=== PATIENT | male | born 1990 | race Caucasian/White ===

== ENCOUNTER → 2017-01-20 | Outpatient (CLI) | payer BC ==
--- NOTE | 2017-01-20 09:07 | REP ---
Chest two views HISTORY: Cough Comparison: 06/28/2015 The lungs are clear. The heart is normal in size. The pulmonary vasculature is normal in appearance. The bony structure is intact. IMPRESSION: No acute disease. Signed by Eduardo Munroe MD 01/20/2017 08:58 A
== END ==
LOC: M RAD 08:46
PROVIDERS: ATTEND Physician Assistant Medical
DX: R05 Cough (principal); R06.02 Shortness of breath

== ENCOUNTER 2017-03-22 02:47 | Inpatient (IN) | payer BC ==
[~2017-03-22] VITALS: Ht 177.8 cm; Wt 76.2 kg
[2017-03-22] MEDS ORDERED: NICOTINE 21MG/24HR 1 EA TRANSDERMAL TD ONE (03:45)
[2017-03-22 03:46] LABS: MEAN CORPUSCULAR HEMOGLOBIN 32.6 pg (27.0-33.0); MEAN CORPUSCULAR HGB CONC 35.4 g/dl (32.0-36.5); WHITE BLOOD COUNT 9.8 K/mm3 (4.0-10.0)
[2017-03-22 04:04] LABS: METHADONE URINE NEGATIVE (NEGATIVE)
[2017-03-22 04:15] LABS: ALBUMIN 4.5 GM/DL (3.2-5.2); ALBUMIN/GLOBULIN RATIO 1.41 (1.00-1.93); ALKALINE PHOSPHATASE 79 U/L (45-117); ALT/SGPT 24 U/L (12-78); ANION GAP 10 MEQ/L (8-16); AST/SGOT 34 U/L (15-37); BILIRUBIN,DIRECT 0.1 MG/DL (0.0-0.2); BILIRUBIN,TOTAL 0.3 MG/DL (0.2-1.0); BLOOD UREA NITROGEN 16 MG/DL (7-18); CALCIUM LEVEL 8.4 MG/DL (8.5-10.1); CARBON DIOXIDE LEVEL 25 MEQ/L (21-32); CHLORIDE LEVEL 106 MEQ/L (98-107); CREATININE FOR GFR 1.05 MG/DL (0.70-1.30); GLOMERULAR FILTRATION RATE > 60.0 (>60); GLUCOSE, FASTING 95 MG/DL (70-105); POTASSIUM SERUM 3.8 MEQ/L (3.5-5.1); SODIUM LEVEL 141 MEQ/L (136-145); TOTAL PROTEIN 7.7 GM/DL (6.4-8.2)
[2017-03-22] MEDS ORDERED: VITMTA PO (05:35)
[2017-03-22] MEDS ORDERED: ARTI99.0 OU (05:35)
[2017-03-22 06:47] VITALS: BP 141/88
[2017-03-22] MEDS ORDERED: MAALOX 30 ML SUSP *UDC PO PRN (07:45)
[2017-03-22] MEDS ORDERED: MOM 30ML SUSPENSION UDC PO PRN (07:45)
[2017-03-22] MEDS ORDERED: ACETAMINOPHEN TAB 650MG DOSE (2X325MG) PO PRN (07:45)
[2017-03-22] MEDS ORDERED: traZODone 50 MG TAB PO PRN (07:45)
--- NOTE | 2017-03-22 09:37 | MHHPEPDOC ---
[facility] History & Physical History and Physical DATE OF ADMISSION: March 22, 2017 at 06:18 LEGAL STATUS AT ADMISSION: Voluntary. CHIEF COMPLAINT: "I feel very depressed because I had an argument with my girlfriend last night" HISTORY OF THE PRESENT ILLNESS: Patient is a 26-year-old male, who is seen in hospital clothes, depressed, anxious. Reports he has been having an on and off relationship with his ex girlfriend but he keeps going back to her, he has helped her out when she had financial strains, when she has moved from home to home, after she came out of nursing home for driving a car without insurance (?). He says he has been depressed for years since he was 11 years old, after his parents got , when he was 11 years old. He has problems with separations and for that reason he decided to put an end to his life last night when he went to the river and considered jumping into the water, but then he decided not to do it and went to see his mother who brought him to the ER. He says he went to see his girlfriend to a local bar, where she works, but she said some "very nasty things to me", because "she doesn't want me to go there because she has a relationship with the strawhat blocking operator". He states he feels very depressed and anxious, denies active suicidal ideation at this time. Describes chronic feelings of emptiness, attachment problems ( can't stand separations) and explosive behavior while under stress. PSYCHIATRIC REVIEW OF SYSTEMS: Affective: Feels embarrassed, guilty, depressed, Anxiety: High Trauma: Denies Psychosis: Denies Personally: Needs further assessment PAST PSYCHIATRIC HISTORY: Prior Psychiatric Disorder: History of depression, took a handful of Ambien and drank Vodka "But it wasn't intended to harm myself, I was very depressed at that time" Outpatient Treatment: NO Suicidal/Self injurious: Denies suicidal ideation at this time. Psychotropic Medication History: Denies legal use but has acquired Ambien and Suboxone illegally. ALLERGIES: Please see below. FAMILY PSYCHIATRIC HISTORY: Mother and maternal grandmother have suffered depression but none of them has received treatment. SOCIAL HISTORY: Early Relations/development: Describes his childhood as a happy childhood until his parents got at age 11, when he became bitter and angry. Sibling order: Has two siblings, an older brother and a younger brother. He feels he "is in awkward relationship" because both of his brothers are homsexual and he felt isolated, that he didn't have a lot in common with them. Paternal relationships: Good relationship with both parents, but he became bitter when they at age 11. Education: Has gone to College in [place] ( [employer]), studied Geography for 1 year, had attended [employer] in [place] for two years and got an associate degree in social sciences. Occupational: Drives for [employer]. Legal: "A couple of pot tickets", "speeding tickets" Martial: Single.. Economic: He is working and perceives a salary. Supports: Both parents. Abuse/trauma: Negative SUBSTANCE ABUSE HISTORY: Uss alcohol, marijuana once every month, mushrooms and acid while in high school, opioids (morphine, vicodan) while he was transitioning from [employer] to [place] and once in [place], purchased Suboxone and Ambien on campus in [place]. PAST MEDICAL/SURGICAL HISTORY: 1. 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 MENTAL STATUS EXAMINATION: General appearance: Patient is a 26-year old male, who is alert, cooperative with interview, with poor eye contact. Speech: Normal, soft spoken. Thought processes: Linear, coherent, organized. Thought content: Negative for homicidal ideation, negative for delusional thoughts, negative for auditory or visual hallucinations, positive for passive suicidal thoughts. Abstract reasoning and computation: Fair. Description of associations: Not loose. Description of abnormal or psychotic thoughts: Not present. Judgment: Poor. Insight: Poor. Orientation: Oriented 3. Recent and remote memory: Intact. Attention span and concentration: Fair. Fund of knowledge: Full. Mood: "I'm depressed." Affect: Sad, depressed. DIAGNOSES: 1. Major depressive disorder, chronic, severe with suicidal ideation. 2. Rule out borderline personality. 3. Substance use disorder. ASSESSMENT: Patient has a long-standing history of depression but he has never been treated for it and has never received therapy. He has a history of substance abuse that has never been addressed and he claims that he doesn't use any other substances other than alcohol and marijuana, but he will need help to realize that he has been using substances to soothe his feelings of depression. The author of this document believes he has borderline personality traits, because he can't stand separations, he describes a chronic emptiness and failure to control his emotions when he is under stress. PROBLEM LIST: 1. Risk for suicide. 2. Depression. 3. Anxiety. INITIAL TREATMENT PLAN: 1. Patient was admitted on a Voluntary 2. Complete history was obtained. 3. With patients permission, family will be contacted and database will be expanded. 4. Patients medication regimen will be reviewed and changed accordingly. 5. Patient will be provided with protected environment. 6. Patient will be treated with individual, group, and milieu therapies. 7. Patient will receive supportive psych-education. 8. Discharge planning will commence immediately. 9. Outpatient follow-up treatment will be strongly recommended. 10. The initial treatment plan will focus initially on: * Depression. * Risk for suicide. * Substance abuse. ESTIMATED LENGTH OF STAY: 5-7 DAYS. TIME SPENT COUNSELING AND COORDINATING INITIAL CARE: 50 minutes. Laboratory Data 24H Labs Laboratory Tests 2 03/22/17 03:27: Urine Amphetamines Screen NEGATIVE, Urine Benzodiazepines Screen NEGATIVE, Urine Opiates Screen NEGATIVE, Urine Methadone Screen NEGATIVE, Urine Barbiturates Screen NEGATIVE, Urine Phencyclidine Screen NEGATIVE, Urine Cocaine Metabolite Screen NEGATIVE, Urine Cannabinoids Screen NEGATIVE 03/22/17 03:33: Anion Gap 10, Glomerular Filtration Rate > 60.0, Calcium Level 8.4L, Aspartate Amino Transf (AST/SGOT) 34, Alanine Aminotransferase (ALT/SGPT) 24, Alkaline Phosphatase 79, Total Bilirubin 0.3, Direct Bilirubin 0.1, Total Protein 7.7, Albumin 4.5, Albumin/Globulin Ratio 1.41, Thyroid Stimulating Hormone (TSH) 1.350, Salicylates Level < 1.7L, Acetaminophen Level < 2.0L, Ethyl Alcohol Level 0.111H CBC/BMP Laboratory Tests 03/22/17 03:33 Red Blood Count 5.15, Mean Corpuscular Volume 92.0, Mean Corpuscular Hemoglobin 32.6, Mean Corpuscular Hemoglobin Concent 35.4, Red Cell Distribution Width 13.0 Medications Scheduled Multivitamins *[facility] STOCKED* (Thera M Plus *[facility] STOCKED*) 1 Tab Tab, 1 TAB PO DAILY, (Reported) Scheduled PRN Artificial Tears (Artificial Tears) 1.4 % Rachell, 1 DROP OU QID PRN for DRY EYES, ( Reported) Allergies Coded Allergies: No Known Allergies (Unverified , 03/22/17) MONTY RUSSELL MD March 22, 2017 09:37
[2017-03-22] MEDS ORDERED: hydrOXYzine 25 MG TAB PO PRN (09:45)
[2017-03-22] MEDS: SERTRALINE HCL 50 MG TAB PO SCH (09:49)
[2017-03-22] MEDS: NICOTINE 21MG/24HR 1 EA TRANSDERMAL TD SCH (09:49)
--- NOTE | 2017-03-22 10:57 | HPEPDOC ---
Medical History and Physical Date of Admission March 22, 2017 at 06:18 History and Physical PCP: Dr Mathis ATTENDING: Dr. Cecilio Marrero HPI: 26 yo M admitted to [facility] for unspecified depressive disorder, being medically examined today. No acute medical complaints today. Denies any fevers, chills, weakness, fatigue, TAVARES, CP, SOB, cough, palpitations, abdominal pain, N/V /D or changes in bowel or bladder habits. PMHx: Seasonal allergies Depression PSHX: Hemangioma removed from the tongue Circumcision 2 SOCHX: Resides in: [place] Marital Status: Single Kids: None Employment: driver/refuse collector Tobacco use: One pack per day ETOH: 6-10 beers 3-4 times per week Illicit Drugs: History of opioid use in college (suboxone) IV Drug Use: Denies Tattoos done unprofessionally: Denies FAMHX: Mother: Alive, well Father: Alive, well Siblings: 2 brothers Alive, well Children: None Unexpected deaths due to medical reasons: None. ROS: As noted in HPI, otherwise 11pt ROS of systems reviewed and unremarkable. PE: GEN: 26 yo M, appears stated age. Well-nourished, well developed. No acute distress. Alert and oriented x 3. Pleasant, interactive. HEENT: Normocephalic, atraumatic. Pupils are equal, round, and reactive to light. Extraocular movements are intact. No nystagmus appreciated. Sclera are nonicteric. Conjunctiva without injection. Nose midline. Nasal turbinates without bogginess. EACs both patent BL. TMs both visualized and [place] with good cone of light, no bulging or erythema. No facial asymmetry. Moist mucous membranes. Dentition fair. Pharynx pink and moist, no cobblestoning. Neck supple , trachea midline. No lymphadenopathy or thyromegaly appreciated. CHEST: Regular rate and rhythm, +S1, +S2 LUNGS: Clear to auscultation bilaterally. No wheezes, rales, or rhonchi. Breathing appears symmetric and easy. Patient is speaking in full sentences. No accessory muscle use. ABD: Round, soft, non-tender, non-distended. +Bowel sounds throughout. No rebound or guarding. No costovertebral angle tenderness. EXT: Pulses 2+ bilaterally dorsalis pedis and radial. No lower extremity edema appreciated. SKIN: [place], dry, warm. Capillary refill <2sec. No rashes. NEURO: Alert and oriented x 3. Cranial nerves III-XII are intact. No focal deficits appreciated. EKG: Pending. A&P: 26 yo M admitted to [facility] for unspecified depressive disorder 1. Psych. Plan per Psychiatry. Obtain baseline EKG to assure the safety of psychiatric medications as they can prolong the QT interval. 2. Nicotine dependence. Patch available. 3. Borderline EKG. No cardiac signs or symptoms appreciated on exam, follow with PCP. 4. Follow up with PCP on discharge. 5. H/O Substance use. Per psychiatry. 6. Saman safety aid present throughout exam. Vital Signs Vital Signs Date Time Temp Pulse Resp B/P (MAP) Pulse Ox O2 Delivery O2 Flow Rate FiO2 03/22/17 06:47 98.2 74 16 141/88 (105) 03/22/17 06:25 97 Room Air Laboratory Data Labs 24H Laboratory Tests 2 03/22/17 03:27: Urine Amphetamines Screen NEGATIVE, Urine Benzodiazepines Screen NEGATIVE, Urine Opiates Screen NEGATIVE, Urine Methadone Screen NEGATIVE, Urine Barbiturates Screen NEGATIVE, Urine Phencyclidine Screen NEGATIVE, Urine Cocaine Metabolite Screen NEGATIVE, Urine Cannabinoids Screen NEGATIVE 03/22/17 03:33: Anion Gap 10, Glomerular Filtration Rate > 60.0, Calcium Level 8.4L, Aspartate Amino Transf (AST/SGOT) 34, Alanine Aminotransferase (ALT/SGPT) 24, Alkaline Phosphatase 79, Total Bilirubin 0.3, Direct Bilirubin 0.1, Total Protein 7.7, Albumin 4.5, Albumin/Globulin Ratio 1.41, Thyroid Stimulating Hormone (TSH) 1.350, Salicylates Level < 1.7L, Acetaminophen Level < 2.0L, Ethyl Alcohol Level 0.111H CBC/BMP Laboratory Tests 03/22/17 03:33 Red Blood Count 5.15, Mean Corpuscular Volume 92.0, Mean Corpuscular Hemoglobin 32.6, Mean Corpuscular Hemoglobin Concent 35.4, Red Cell Distribution Width 13.0 Home Medications Scheduled Multivitamins *[facility] STOCKED* (Thera M Plus *[facility] STOCKED*) 1 Tab Tab, 1 TAB PO DAILY Scheduled PRN Artificial Tears (Artificial Tears) 1.4 % Rachell, 1 DROP OU QID PRN for DRY EYES Allergies Coded Allergies: No Known Allergies (Unverified , 03/22/17) Sudha Carpenter March 22, 2017 10:57
[2017-03-22 18:43] VITALS: BP 120/85
[2017-03-22 18:52] VITALS: BP 120/85
[2017-03-23 06:18] VITALS: BP 120/75
[2017-03-23 08:00] VITALS: BP 130/76
[2017-03-23] MEDS: SERTRALINE HCL 50 MG TAB PO SCH (08:51)
[2017-03-23] MEDS: NICOTINE 21MG/24HR 1 EA TRANSDERMAL TD SCH (08:52)
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
[2017-03-23 16:00] VITALS: BP 138/87
[2017-03-23 18:00] VITALS: BP 138/87
[2017-03-24 06:36] VITALS: BP 143/76
[2017-03-24] MEDS: NICOTINE 21MG/24HR 1 EA TRANSDERMAL TD SCH (09:24)
[2017-03-24] MEDS: SERTRALINE HCL 50 MG TAB PO SCH (09:24)
--- NOTE | 2017-03-24 15:38 | MHIPNPDOC ---
[facility] Progress Note Progress Note DATE OF SERVICE: 03/24/17 HISTORY: 26 year old who has been depressed for several years and came in two nights ago, because [place] himself [place] The trigger was an argument he had with his girlfriend with whom he has been having an ion and off, chaotic relationship. VITAL SIGNS: See below. NEW TEST RESULTS: None CURRENT MEDICATIONS: See below. MENTAL STATUS EXAMINATION: Patient is a 26-year old male, who is alert, cooperative, with good eye contact. Speech: Is normal. Language skills are good. Thought processes including: Intact. Thought content: Negative for suicidal ideation, negative for homicidal ideation , negative for psychotic thoughts. Abstract reasoning, and computation: Good. Description of associations: Not loose. Description of abnormal or psychotic thoughts: Not present. Judgment: Poor. Insight: Poor. Orientation: Oriented x 3. Recent and remote memory: Intact. Attention span and concentration: Good. Language: Normal. Fund of knowledge: Full. Mood: "I'm not suicidal, I'm coming out of my depression." Affect: Brighter, euthymic. DIAGNOSES: 1. Major Depressive Disorder, chronic, moderate without SI. 2. Substance abuse. 3. R/O Borderline PD. ASSESSMENT:20 MANAGEMENT PLAN: Will discuss possibility of D/c tomorrow. TIME SPENT: 15 minutes. Vital Signs Vital Signs Date Time Temp Pulse Resp B/P (MAP) Pulse Ox O2 Delivery O2 Flow Rate FiO2 03/24/17 06:36 98.1 72 18 143/76 (98) 03/23/17 18:00 Room Air 03/22/17 06:25 97 Current Medications Current Medications Acetaminophen (Tylenol Tab) 650 mg Q6HP PRN PO HEADACHE or DISCOMFORT; Start at 07:45; Stop 04/21/17 at 07:44 Al Hydrox/Mg Hydrox/Simethicone (Mylanta) 30 ml Q4HP PRN PO HEARTBURN/ INDIGESTION; Start 03/22/17 at 07:45; Stop 04/21/17 at 07:44 Home Med (Med Rec Complete!) ASDIRECTED XX ; Start 03/22/17 at 05:45; Stop at 05:45; Status DC Hydroxyzine HCl (Atarax) 25 mg BID PRN PO ANXIETY/AGITATION Last administered on 03/22/17 09:48; Start 03/22/17 at 09:45; Stop 04/21/17 at 09:44 Magnesium Hydroxide (Milk Of Magnesia) 30 ml DAILYPRN PRN PO CONSTIPATION; Start 03/22/17 at 07:45; Stop 04/21/17 at 07:44 Nicotine (Nicoderm Cq 21mg) 1 patch DAILY TD Last administered on 03/24/17 09: 24; Start 03/22/17 at 09:00; Stop 04/21/17 at 08:59 Sertraline HCl (Zoloft) 50 mg DAILY PO Last administered on 03/24/17 09:24; Start 03/22/17 at 09:00; Stop 04/21/17 at 08:59 Trazodone HCl (Desyrel) 50 mg QHSP PRN PO INSOMNIA; Start 03/22/17 at 07:45; Stop 04/21/17 at 07:44 Allergies Coded Allergies: No Known Allergies (Unverified , 03/22/17) MONTY RUSSELL MD March 24, 2017 15:38
[2017-03-24] MEDS ORDERED: HYDR25T PO (17:15)
[2017-03-24] MEDS ORDERED: TRAZO50TA PO (17:15)
[2017-03-24] MEDS ORDERED: SERT50TA PO (17:15)
[2017-03-24 18:00] VITALS: BP 126/79
[2017-03-25 06:18] VITALS: BP 128/72
[2017-03-25] MEDS: SERTRALINE HCL 50 MG TAB PO SCH (08:45)
[2017-03-25] MEDS: NICOTINE 21MG/24HR 1 EA TRANSDERMAL TD SCH (08:46)
--- NOTE | 2017-03-25 10:37 | MHDSPDOC ---
[facility] Discharge Summary Discharge Summary DATE OF ADMISSION: March 22, 2017 at 06:18 DATE OF DISCHARGE: DISCHARGE DIAGNOSES: 1. Major Depressive Disorder, recurrent, moderate 2. Substance (alcohol) use disorder 3. Borderline Personality D/O REASON FOR ADMISSION: Suicidal ideation after having an argument with girlfriend who has told him "very hurtful things" and didn't want anything with him, Patient believes she's involved with her boss but whenever she's in need of money, or need to move to another house, he helps her. CONSULTANTS INVOLVED: None TREATMENT AND PROGRESS ON THE UNIT : Lv was started on sertraline 50 mgs. PO QHS, trazodone 50 mg by mouth daily at bedtime attended groups, said he felt the medication group and yoga group for helping him a lot and yesterday he verbalized not feeling suicidal anymore, that he had thoughts about his relationship with his ex-girlfriend and now he understood that he couldn't keep on going like this, that he is not going to get in touch with her because he understands that is one of the triggers. He felt that he had a good response to Zoloft and he is interested in keeping appointments as an outpatient for therapy and medications. He was not suicidal, not homicidal and not psychotic is not a threat to self or others HOSPITAL COURSE: During his hospitalization Lv displays a pleasant, cooperative attitude. He attended groups, he was compliant with medications. He was never aggressive or violent. He improved to the point that he is not longer suicidal and his symptoms of depression have decreased. He is willing to go back to work. DISCHARGE ASSESSMENT: Patient has improved. At this time he doesn't have suicidal ideation, homicidal ideation, delusional thoughts auditory or visual hallucinations. His judgment, insight and impulse control have improved. MENTAL STATUS EXAMINATION ON DISCHARGE: Patient is a 26-year old male, who is alert, cooperative, pleasant, dressed in hospital clothes with good eye contact. Speech is and normal. Language skills are normal. Thought processes including: Intact. Thought content: Negative for homicidal ideation, negative for suicidal ideation , negative for delusional thoughts, negative for auditory and visual hallucinations, negative for obsessions and compulsions, negative for phobias. Abstract reasoning, and computation: Good. Description of associations: Not loose. Description of abnormal or psychotic thoughts: Not present. Judgment: Improved. Insight: Improved. Orientation to oriented 3. Recent and remote memory: Intact. Attention span and concentration: Good. Language: Normal. Fund of knowledge: Full. Mood: "I feel better now. I feel that the groups and the medications have helped me a lot". Affect: Euthymic. MEDICATIONS ON DISCHARGE: -Zoloft 50 mg by mouth daily for depression and anxiety. -Trazodone 50 mg by mouth daily at bedtime for insomnia. - Atarax 25 mg by mouth twice a day when necessary for anxiety or agitation PLAN/FOLLOWUP ARRANGEMENTS: He will continue treatment as an outpatient with psychotherapy and medications. The amount of time spent in the coordination of care for this patient was approximately 30 minutes. Vital Signs/I&Os Vital Signs Date Time Temp Pulse Resp B/P (MAP) Pulse Ox O2 Delivery O2 Flow Rate FiO2 03/25/17 06:18 97.3 71 16 128/72 (90) 03/23/17 18:00 Room Air 03/22/17 06:25 97 Medications Scheduled Multivitamins *[facility] STOCKED* (Thera M Plus *[facility] STOCKED*) 1 Tab Tab, 1 TAB PO DAILY, (Reported) Sertraline Hcl (Sertraline HCl) 50 Mg Tab, 50 MG PO DAILY for MOOD, #10 Scheduled PRN Artificial Tears (Artificial Tears) 1.4 % Rachell, 1 DROP OU QID PRN for DRY EYES, ( Reported) Hydroxyzine HCl (Hydroxyzine HCl) 25 Mg Tab, 25 MG PO BID PRN for ANXIETY/ AGITATION, #14 Trazodone HCl (Trazodone HCl) 50 Mg Tab, 50 MG PO QHSP PRN for INSOMNIA, #10 Allergies Coded Allergies: No Known Allergies (Unverified , 03/22/17) MONTY RUSSELL MD March 25, 2017 10:37
== END 2017-03-25 10:30 | disposition home or self-care (01) | DRG 751 ==
LOC: M ED 04:55 → M ED INP 06:18 → M PSY 06:42
PROVIDERS: ADMIT Psychiatry & Neurology Psychiatry; ATTEND Psychiatry & Neurology Psychiatry
DX: F33.1 Major depressive disorder, recurrent, moderate (principal); R45.851 Suicidal ideations; F60.3 Borderline personality disorder; F10.10 Alcohol abuse, uncomplicated; G47.00 Insomnia, unspecified; Z79.899 Other long term (current) drug therapy; F17.200 Nicotine dependence, unspecified, uncomplicated